=== PATIENT | female | born 1955 | race Caucasian/White ===

== ENCOUNTER 2016-06-18 09:38 | Emergency (ER) | payer OTHER ==
[~2016-06-18] VITALS: Ht 149.9 cm; Wt 72.7 kg
[~2016-06-18 09:38] MED LIST: ALBU8HFA IH; ATOR20TA86 PO; CALC-451 PO; CHOL400T41 PO; GLIP5TAB11 PO; LEVO100 PO; LISI-661 PO; LORA10TA7 PO; METF500T4 PO; OMEG-11 PO
[2016-06-18 10:02] LABS: GLUCOSE,POINT OF CARE 273 MG/DL (70-110)
[2016-06-18] MEDS ORDERED: IPRATROPIUM BROMIDE 0.5 MG/2.5 ML NEB SOLUTION NEB ONE (12:00)
[2016-06-18] MEDS ORDERED: PredniSONE 20 MG TABLET PO ONE (12:00)
[2016-06-18] MEDS ORDERED: ALBUTEROL SULFATE 5 MG/ML 20 ML NEB SOLN [BULK] NEB ONE (12:00)
[2016-06-18 12:28] LABS: BASOPHILS % (AUTO) 0.4 % (0.0-2.0); EOSINOPHILS % (AUTO) 2.3 % (1.0-6.0); HEMOGLOBIN 13.9 g/dL (12.0-16.0); LYMPHOCYTES # (AUTO) 2.2 K/uL (1.0-4.8); LYMPHOCYTES % (AUTO) 20.3 % (22.0-44.0); MEAN CORPUSCULAR HEMOGLOBIN 28.9 pg (26.0-34.0); MEAN CORPUSCULAR HGB CONC 32.4 G/dL (31.0-37.0); MEAN CORPUSCULAR VOLUME 89 fL (80-100); MONOCYTES # (AUTO) 0.4 K/uL (0.1-1.0); MONOCYTES % (AUTO) 3.5 % (2.0-9.0); NEUTROPHILS # (AUTO) 8.1 K/uL (1.8-7.7); NEUTROPHILS % (AUTO) 73.5 % (40.0-70.0); PLATELET COUNT (AUTO) 191 K/uL (150-450); RED BLOOD CELL COUNT(AUTO) 4.81 MIL/uL (4.00-5.20); RED CELL DISTRIBUTION WIDTH 13.7 % (11.5-14.5); WHITE BLOOD COUNT (AUTO) 11.1 K/uL (4.5-11.0)
[2016-06-18 12:55] VITALS: BP 116/52
[2016-06-18 13:12] LABS: ANION GAP 11 mmol/L (8-16); CALCIUM, TOTAL 9.3 mg/dL (8.8-10.5); CARBON DIOXIDE 27 mmol/L (22-29); CHLORIDE 102 mmol/L (98-107); CREATININE 0.71 mg/dL (0.60-1.30); GLOMERULAR FILTR. RATE CALC > 60 mL/min (>60); POTASSIUM 3.9 mmol/L (3.5-5.1); SODIUM SERUM 140 mmol/L (136-145); UREA NITROGEN, BLOOD 11 mg/dL (7-18)
[2016-06-18] MEDS ORDERED: MetFORMIN HCL 500 MG TABLET PO ONE (13:15)
[2016-06-18] MEDS ORDERED: GlipiZIDE 5 MG TABLET PO ONE (13:15)
[2016-06-18 13:18] LABS: ALANINE AMINOTRANSFERASE 53 U/L (12-78); ALBUMIN 3.6 g/dL (3.4-5.0); ASPARTATE AMINOTRANSFERASE 30 U/L (15-37); BILIRUBIN,TOTAL 0.2 mg/dL (0.1-1.0); CREATINE KINASE, TOTAL 62 U/L (26-192); TOTAL PROTEIN, SERUM 7.3 g/dL (6.4-8.2)
[2016-06-18 13:20] LABS: B-TYPE NATRIURETIC PEPTIDE 17 pg/mL (0-100)
== END 2016-06-18 15:28 | disposition home or self-care (01) ==
LOC: EMS 09:40
DX: J45.901 Unspecified asthma with (acute) exacerbation (principal); I10 Essential (primary) hypertension; E11.9 Type 2 diabetes mellitus without complications; E78.00 Pure hypercholesterolemia, unspecified; E03.9 Hypothyroidism, unspecified
CPT/HCPCS: 36415; 71010; 80053; 82550; 82962; 83880; 84484; 85025; 93005; 94640; 99285; J7512; J7611

== ENCOUNTER 2017-03-29 22:16 | Emergency (ER) | payer OTHER ==
[~2017-03-29] VITALS: Ht 147.3 cm; Wt 70.5 kg
[~2017-03-29 22:16] MED LIST changes: +CHOL400T4 PO; -CHOL400T41 PO
[2017-03-29] MEDS ORDERED: ACETAMINOPHEN 500 MG TABLET ONE (22:35)
[2017-03-29] MEDS ORDERED: 0.9% SODIUM CHLORIDE 5 ML NEB SOLUTION NEB ONE (22:38)
[2017-03-29] MEDS ORDERED: IPRATROPIUM BROMIDE 0.5 MG/2.5 ML NEB SOLUTION NEB ONE (22:45)
[2017-03-29] MEDS ORDERED: ACETAMINOPHEN 500 MG TABLET PO ONE (22:45)
[2017-03-29] MEDS ORDERED: ALBUTEROL SULFATE 5 MG/ML 20 ML NEB SOLN [BULK] NEB ONE (22:45)
[2017-03-30] MEDS ORDERED: IPRATROPIUM BROMIDE 0.5 MG/2.5 ML NEB SOLUTION NEB ONE ×3 (01:15→02:45)
[2017-03-30] MEDS ORDERED: ALBUTEROL SULFATE 2.5 MG/0.5 ML NEB SOLUTION NEB ONE ×2 (01:15→02:45)
[2017-03-30] MEDS ORDERED: ALBUTEROL SULFATE 5 MG/ML 20 ML NEB SOLN [BULK] NEB ONE ×2 (01:15→02:45)
[2017-03-30] MEDS ORDERED: 0.9% SODIUM CHLORIDE 5 ML NEB SOLUTION NEB ONE ×2 (01:16→02:36)
[2017-03-30 01:17] LABS: INFLUENZA TYPE A NEGATIVE FOR TYPE A (NEGATIVE); INFLUENZA TYPE B NEGATIVE FOR TYPE B (NEGATIVE)
[2017-03-30 03:56] VITALS: BP 106/63
== END 2017-03-30 04:23 | disposition home or self-care (01) ==
LOC: EMS 22:16
DX: J45.901 Unspecified asthma with (acute) exacerbation (principal); E11.9 Type 2 diabetes mellitus without complications; E78.00 Pure hypercholesterolemia, unspecified; I10 Essential (primary) hypertension; E03.9 Hypothyroidism, unspecified
CPT/HCPCS: 87804; 94644; 94645; 99285; J7613

== ENCOUNTER 2017-12-12 20:40 | Emergency (ER) | payer OTHER ==
[~2017-12-12] VITALS: Ht 147.3 cm; Wt 81.8 kg
[~2017-12-12 20:40] MED LIST changes: +METF-960 PO; -METF500T4 PO
[2017-12-12 20:53] LABS: GLUCOSE,POINT OF CARE 157 MG/DL (70-110)
[2017-12-12] MEDS ORDERED: ALBUTEROL SULFATE 2.5 MG/0.5 ML NEB SOLUTION NEB ONE (21:15)
[2017-12-12] MEDS ORDERED: IPRATROPIUM BROMIDE 0.5 MG/2.5 ML NEB SOLUTION NEB ONE (21:15)
[2017-12-12 21:37] LABS: INFLUENZA TYPE A NEGATIVE FOR TYPE A (NEGATIVE); INFLUENZA TYPE B NEGATIVE FOR TYPE B (NEGATIVE)
[2017-12-12 22:40] VITALS: BP 140/85
== END 2017-12-12 22:42 | disposition home or self-care (01) ==
LOC: EMS 20:41
DX: J40 Bronchitis, not specified as acute or chronic (principal); J02.9 Acute pharyngitis, unspecified; J45.909 Unspecified asthma, uncomplicated; E11.9 Type 2 diabetes mellitus without complications; E78.00 Pure hypercholesterolemia, unspecified; I10 Essential (primary) hypertension; E03.9 Hypothyroidism, unspecified; Z79.899 Other long term (current) drug therapy; Z79.84 Long term (current) use of oral hypoglycemic drugs
CPT/HCPCS: 87804

== ENCOUNTER 2018-10-28 15:49 | Emergency (ER) | payer OTHER ==
[~2018-10-28] VITALS: Ht 149.9 cm; Wt 72.7 kg
[2018-10-28 16:29] LABS: BASOPHILS % (AUTO) 0.7 % (0.0-2.0); EOSINOPHILS % (AUTO) 5.2 % (1.0-6.0); HEMOGLOBIN 13.8 g/dL (12.0-16.0); LYMPHOCYTES # (AUTO) 2.7 K/uL (1.0-4.8); LYMPHOCYTES % (AUTO) 32.2 % (22.0-44.0); MEAN CORPUSCULAR HEMOGLOBIN 29.7 pg (26.0-34.0); MEAN CORPUSCULAR HGB CONC 32.1 G/dL (31.0-37.0); MEAN CORPUSCULAR VOLUME 92 fL (80-100); MONOCYTES # (AUTO) 0.4 K/uL (0.1-1.0); MONOCYTES % (AUTO) 5.1 % (2.0-9.0); NEUTROPHILS # (AUTO) 4.8 K/uL (1.8-7.7); NEUTROPHILS % (AUTO) 56.8 % (40.0-70.0); PLATELET COUNT (AUTO) 186 K/uL (150-450); RED BLOOD CELL COUNT(AUTO) 4.66 MIL/uL (4.00-5.20); RED CELL DISTRIBUTION WIDTH 13.8 % (11.5-14.5)
[2018-10-28 16:49] LABS: ANION GAP 7 mmol/L (8-16); CALCIUM, TOTAL 9.8 mg/dL (8.8-10.5); CARBON DIOXIDE 27 mmol/L (22-29); CHLORIDE 101 mmol/L (98-107); CREATININE 0.76 mg/dL (0.60-1.30); GLOMERULAR FILTR. RATE CALC > 60 mL/min (>60); GLUCOSE,RANDOM 278 mg/dL (70-110); SODIUM SERUM 135 mmol/L (136-145); UREA NITROGEN, BLOOD 12 mg/dL (7-18)
[2018-10-28 16:55] LABS: ALANINE AMINOTRANSFERASE 58 U/L (12-78); ALBUMIN 4.2 g/dL (3.4-5.0); ALKALINE PHOSPHATASE 88 U/L (46-116); ASPARTATE AMINOTRANSFERASE 43 U/L (15-37); BILIRUBIN,TOTAL 0.3 mg/dL (0.1-1.0); TOTAL PROTEIN, SERUM 7.8 g/dL (6.4-8.2)
[2018-10-28] MEDS ORDERED: IBUPROFEN 600 MG TABLET PO ONE (17:45)
[2018-10-28] MEDS ORDERED: ASPIRIN 81 MG CHEWABLE TABLET PO ONE (18:00)
[2018-10-28 20:00] VITALS: BP 128/88
== END 2018-10-28 20:23 | disposition home or self-care (01) ==
LOC: EMS 15:51
DX: R07.89 Other chest pain (principal); M54.6 Pain in thoracic spine; J45.909 Unspecified asthma, uncomplicated; E11.9 Type 2 diabetes mellitus without complications; E78.00 Pure hypercholesterolemia, unspecified; I10 Essential (primary) hypertension; E03.9 Hypothyroidism, unspecified; Z79.84 Long term (current) use of oral hypoglycemic drugs; Z79.899 Other long term (current) drug therapy
CPT/HCPCS: 93005

== ENCOUNTER 2018-12-02 03:09 | Emergency (ER) | payer OTHER ==
[~2018-12-02] VITALS: Ht 149.9 cm; Wt 72.7 kg
[~2018-12-02 03:09] MED LIST changes: -CALC-451 PO; -CHOL400T4 PO; -LORA10TA7 PO
[2018-12-02] MEDS ORDERED: 0.9% SODIUM CHLORIDE 5 ML NEB SOLUTION NEB ONE (03:22)
[2018-12-02] MEDS ORDERED: ALBUTEROL SULFATE 5 MG/ML 20 ML NEB SOLN [BULK] NEB ONE (03:30)
[2018-12-02] MEDS ORDERED: MethylPREDNISolone SOD SUCC 125 MG/2 ML VIAL IVP ONE (03:30)
[2018-12-02] MEDS ORDERED: IPRATROPIUM BROMIDE 0.5 MG/2.5 ML NEB SOLUTION NEB ONE (03:30)
[2018-12-02] MEDS ORDERED: MAGNESIUM SULFATE 2 GM/WATER 50 ML IV ONE (04:00)
[2018-12-02 04:07] LABS: BASOPHILS % (AUTO) 1.1 % (0.0-2.0); EOSINOPHILS % (AUTO) 5.9 % (1.0-6.0); HEMATOCRIT 42.6 % (36-46); HEMOGLOBIN 14.1 g/dL (12.0-16.0); LYMPHOCYTES # (AUTO) 5.1 K/uL (1.0-4.8); LYMPHOCYTES % (AUTO) 47.6 % (22.0-44.0); MEAN CORPUSCULAR HGB CONC 33.2 G/dL (31.0-37.0); MEAN CORPUSCULAR VOLUME 90 fL (80-100); MONOCYTES # (AUTO) 0.5 K/uL (0.1-1.0); MONOCYTES % (AUTO) 4.6 % (2.0-9.0); NEUTROPHILS # (AUTO) 4.4 K/uL (1.8-7.7); NEUTROPHILS % (AUTO) 40.8 % (40.0-70.0); PLATELET COUNT (AUTO) 171 K/uL (150-450); RED BLOOD CELL COUNT(AUTO) 4.72 MIL/uL (4.00-5.20)
[2018-12-02 04:14] LABS: ANION GAP 10 mmol/L (8-16); CALCIUM, TOTAL 9.8 mg/dL (8.8-10.5); CARBON DIOXIDE 28 mmol/L (22-29); CHLORIDE 99 mmol/L (98-107); CREATININE 0.86 mg/dL (0.60-1.30); GLOMERULAR FILTR. RATE CALC > 60 mL/min (>60); GLUCOSE,RANDOM 299 mg/dL (70-110); POTASSIUM 3.5 mmol/L (3.5-5.1); SODIUM SERUM 137 mmol/L (136-145); UREA NITROGEN, BLOOD 21 mg/dL (7-18)
[2018-12-02 04:19] LABS: ALANINE AMINOTRANSFERASE 45 U/L (12-78); ALBUMIN 3.8 g/dL (3.4-5.0); ALKALINE PHOSPHATASE 113 U/L (46-116); ASPARTATE AMINOTRANSFERASE 16 U/L (15-37); BILIRUBIN,TOTAL 0.3 mg/dL (0.1-1.0); TOTAL PROTEIN, SERUM 7.7 g/dL (6.4-8.2)
[2018-12-02 04:24] LABS: B-TYPE NATRIURETIC PEPTIDE 10 pg/mL (0-100)
[2018-12-02] MEDS ORDERED: IBUPROFEN 600 MG TABLET PO ONE (05:00)
[2018-12-02 05:54] VITALS: BP 119/73
== END 2018-12-02 06:02 | disposition home or self-care (01) ==
LOC: EMS 03:09
DX: J45.901 Unspecified asthma with (acute) exacerbation (principal); I10 Essential (primary) hypertension; E11.9 Type 2 diabetes mellitus without complications; E78.00 Pure hypercholesterolemia, unspecified; E03.9 Hypothyroidism, unspecified; Z79.84 Long term (current) use of oral hypoglycemic drugs; Z79.899 Other long term (current) drug therapy
CPT/HCPCS: 36415; 71045; 80053; 83880; 85025; 94644; 96365; 96366; 99285; 96375; J2930; J3475